=== PATIENT | female | born 1995 | race Two or more races ===

== ENCOUNTER 2019-03-28 13:58 | Emergency (ER) | payer MEDICAID ==
[~2019-03-28] VITALS: Ht 170.2 cm; Wt 82.4 kg
[2019-03-28 14:32] LABS: BASOPHILS % (AUTO) 1 % (0-1); EOSINOPHILS # (AUTO) 0.05 x10^3/uL (0-0.4); EOSINOPHILS % (AUTO) 0 % (1-7); LYMPHOCYTES # (AUTO) 2.23 x10^3/uL (1-3.4); LYMPHOCYTES % (AUTO) 20 % (22-44); MD NO; MEAN CORPUSCULAR HGB CONC 33.4 g/dL (32.4-35.8); MEAN CORPUSCULAR VOLUME 86.8 fL (80-100); MEAN PLATELET VOLUME 7.6 fL (7.4-10.4); MONOCYTES # (AUTO) 0.63 x10^3/uL (0.2-0.8); MONOCYTES % (AUTO) 6 % (2-9); NEUTROPHILS # (AUTO) 8.02 x10^3/uL (1.8-6.8); NEUTROPHILS % (AUTO) 73 % (42-75); PLATELET COUNT 318 x10^3/uL (130-400); RED BLOOD COUNT 4.99 x10^6/uL (3.82-5.3); RED CELL DISTRIBUTION WIDTH 13.6 % (9.6-15.2)
[2019-03-28 14:33] LABS: CULTURE INDICATED? YES; MICROSCOPIC INDICATED
[2019-03-28 14:40] LABS: ALBUMIN 4.2 g/dL (3.4-5.0); ANION GAP 8 mmol/L (5-15); CALCIUM 9.3 mg/dL (8.5-10.1); CHLORIDE 104 mmol/L (98-107); CREATININE 0.72 mg/dL (0.55-1.02)
--- NOTE | 2019-03-28 15:03 | NUR ---
COMPARISON SHOPPER: PT TO ROOM FROM ANI JIMENEZ
--- NOTE | 2019-03-28 15:24 | NUR ---
SHELLI REYES RN AT BEDSIDE TO START PIV AND MEDICATE.
[2019-03-28] MEDS ORDERED: CEFTRIAXONE PMX 1GM/50ML 50 ML IV ONE (15:30)
[2019-03-28] MEDS ORDERED: SODIUM CHLORIDE 0.9% 1,000ML IVBOLUS ONE (15:30)
[2019-03-28] MEDS ORDERED: METOCLOPRAMIDE 5 MG/ML, 2ML IVPush ONE (15:30)
[2019-03-28] MEDS ORDERED: CEFTRIAXONE PMX 1GM/50ML 50 ML ONE (15:32)
[2019-03-28] MEDS ORDERED: METOCLOPRAMIDE 5 MG/ML, 2ML ONE (15:32)
--- NOTE | 2019-03-28 15:42 | NUR ---
PT PRESENTING TO ER FOR N/V AND LEFT FLANK PAIN, PT 8 WKS N/V X FEW WEEKS FLANK PAIN STARTING TODAY. ALL RESULTS BACK AT THIS TIME. VSS. IV PLACED, FLUIDS STARTED, PT MEDICATED PER MAR FOR NAUSEA AND WITH ABX. FAMILY AT BEDSIDE. CALL LIGHT WITHIN REACH. AWAITING RECHECK AND DISPO
--- NOTE | 2019-03-28 16:27 | NUR ---
PLAN OF CARE DISCUSSED WITH , MOSHE CHALLENGE THEN D/C.
[2019-03-28 16:29] VITALS: BP 107/65
--- NOTE | 2019-03-28 16:29 | NUR ---
MD AT BEDSIDE TO DISCUSS PLAN OF CARE.
--- NOTE | 2019-03-28 16:30 | NUR ---
PT AMBULATED TO RESTROOM WITH STEADY GAIT.
--- NOTE | 2019-03-28 16:33 | NUR ---
PIV REMOVED, PT UP FOR D/C.
--- NOTE | 2019-03-28 16:59 | NUR ---
AWAITING RECOVERY RN CALL BACK AND DC PAPERS
--- NOTE | 2019-03-28 17:39 | NUR ---
Patient/Caregiver given discharge instructions and they have confirmed that they understand the instructions. Patient ambulatory with steady gait.
== END 2019-03-28 17:41 | disposition home or self-care (01) ==
LOC: ED 17:15
DX: O23.11 Infections of bladder in pregnancy, first trimester (principal); Z3A.01 Less than 8 weeks gestation of pregnancy
CPT/HCPCS: 36415; 76801; 80048; 81001; 82040; 84702; 85025; 87086; 96365; 96375; 99284; J0696; J2765; J7030

== ENCOUNTER 2019-05-18 13:07 | Emergency (ER) | payer MEDICAID ==
[~2019-05-18] VITALS: Ht 170.2 cm; Wt 82.3 kg
[2019-05-18] MEDS ORDERED: ONDANSETRON ODT 4 MG ONE (13:15)
[2019-05-18] MEDS ORDERED: ONDANSETRON ODT 4 MG PO ONE (13:30)
[2019-05-18 14:03] LABS: BASOPHILS # (AUTO) 0.04 x10^3/uL (0-0.1); BASOPHILS % (AUTO) 0 % (0-1); EOSINOPHILS # (AUTO) 0.03 x10^3/uL (0-0.4); EOSINOPHILS % (AUTO) 0 % (1-7); LYMPHOCYTES % (AUTO) 16 % (22-44); MD NO; MEAN CORPUSCULAR HEMOGLOBIN 28.7 pg (27.0-34.8); MEAN CORPUSCULAR HGB CONC 33.3 g/dL (32.4-35.8); MEAN CORPUSCULAR VOLUME 86.2 fL (80-100); MEAN PLATELET VOLUME 7.3 fL (7.4-10.4); MONOCYTES % (AUTO) 4 % (2-9); NEUTROPHILS # (AUTO) 9.19 x10^3/uL (1.8-6.8); NEUTROPHILS % (AUTO) 80 % (42-75); PLATELET COUNT 304 x10^3/uL (130-400); RED BLOOD COUNT 4.93 x10^6/uL (3.82-5.3); RED CELL DISTRIBUTION WIDTH 13.2 % (9.6-15.2)
--- NOTE | 2019-05-18 14:09 | NUR ---
TO ROOM FROM LOBBY. NAD.
[2019-05-18 14:15] LABS: ALBUMIN 3.7 g/dL (3.4-5.0); ANION GAP 7 mmol/L (5-15); CALCIUM 9.3 mg/dL (8.5-10.1); CHLORIDE 105 mmol/L (98-107)
[2019-05-18] MEDS ORDERED: MULT-658 PO (14:26)
--- NOTE | 2019-05-18 14:29 | NUR ---
ASSESSMENT COMPLETED. PATIENT STATES "NAUSEA WITH VOMITING FOR 3 DAYS, AND UNABLE TO KEEP ANY FOOD DOWN" PATIENT STATES SHE IS ABOUT 14WEEKS . PATIENT ALSO COMPLAINS OF "SIDE CRAMPING TO RIGHT SIDE". REGULARLLY FOLLOWS UP WITH [facility] FOR [facility] REP CARE. PATIENT IS ALERT AND ORIENTED, CALL LIGHT IN REACH AND WILL CONTINUE TO MONITOR.
[2019-05-18] MEDS ORDERED: SODIUM CHLORIDE 0.9% 1,000ML IVBOLUS ONE (14:30)
[2019-05-18 14:33] LABS: ALANINE AMINOTRANSFERASE 25 U/L (12-78); ALKALINE PHOSPHATASE 58 U/L (45-117); BILIRUBIN,TOTAL 0.5 mg/dL (0.2-1.0); CREATININE 0.66 mg/dL (0.55-1.02); TOTAL PROTEIN 7.6 g/dL (6.4-8.2)
[2019-05-18 15:06] LABS: CULTURE INDICATED? YES; MICROSCOPIC INDICATED
--- NOTE | 2019-05-18 15:39 | NUR ---
NISREEN BOBO AT BEDSIDE TO DISCUSS PLAN OF CARE/DISCHARGE.
[2019-05-18 15:59] VITALS: BP 117/57
== END 2019-05-18 16:07 | disposition home or self-care (01) ==
LOC: ED 14:56
DX: O21.9 Vomiting of pregnancy, unspecified (principal); E86.0 Dehydration; O26.892 Other specified pregnancy related conditions, second trimester; Z3A.15 15 weeks gestation of pregnancy
CPT/HCPCS: 36415; 76815; 80053; 81001; 83690; 84702; 85025; 87086; 96360; 99284; J7030; Q0162

== ENCOUNTER 2019-08-31 14:59 | Outpatient (CLI) | payer MEDICAID ==
[~2019-08-31] VITALS: Ht 170.2 cm; Wt 84.5 kg
[~2019-08-31 14:59] MED LIST: MULT-658 PO
[2019-08-31 15:18] VITALS: BP 132/64
[2019-08-31] MEDS ORDERED: D5%-LACTATED RINGERS 1,000 ML IV SCH (15:30)
[2019-08-31] MEDS ORDERED: LACTATED RINGERS 1,000 ML IV SCH ×2 (15:30)
[2019-08-31 15:50] LABS: MICROSCOPIC INDICATED
[2019-08-31] MEDS ORDERED: ONDANSETRON 2MG/ML, 2ML IVPush PRN (16:00)
[2019-08-31] MEDS ORDERED: ONDA4TAB7 PO (17:16)
== END 2019-08-31 17:34 | disposition home or self-care (01) ==
LOC: LDOP 14:59
PROVIDERS: ATTEND Obstetrics & Gynecology
DX: O62.9 Abnormality of forces of labor, unspecified (principal); O21.2 Late vomiting of pregnancy; Z3A.30 30 weeks gestation of pregnancy
CPT/HCPCS: 59025; 81001; 96360; 96361; 99211; J7120; J7121; G0463

== ENCOUNTER 2019-10-27 15:38 | Outpatient (CLI) | payer MEDICAID ==
[~2019-10-27] VITALS: Ht 172.7 cm; Wt 91.4 kg
[~2019-10-27 15:38] MED LIST changes: +ONDA4TAB7 PO
[2019-10-27 15:42] VITALS: BP 121/73
== END 2019-10-27 16:23 | disposition home or self-care (01) ==
LOC: LDOP 15:38
PROVIDERS: ATTEND Obstetrics & Gynecology
DX: O36.8130 Decreased fetal movements, third trimester, not applicable or unspecified (principal); Z3A.39 39 weeks gestation of pregnancy
CPT/HCPCS: 59025; 99211; G0463

== ENCOUNTER 2019-10-29 04:01 | Inpatient (IN) | payer MEDICAID ==
[~2019-10-29] VITALS: Ht 172.7 cm; Wt 91.0 kg
[2019-10-29] MEDS ORDERED: OXYTOCIN 30U/ 0.9% NaCL 500ML 500 ML IV ONE (04:10)
[2019-10-29] MEDS ORDERED: D5%-LACTATED RINGERS 1,000 ML IV SCH (04:10)
[2019-10-29] MEDS ORDERED: LACTATED RINGERS 1,000 ML IV SCH (04:10)
[2019-10-29] MEDS ORDERED: LIDOCAINE 1%, 20ML ONE (04:13)
[2019-10-29] MEDS ORDERED: NEWBORN KIT ONE (04:13)
[2019-10-29] MEDS ORDERED: OXYTOCIN 30U/ 0.9% NaCL 500ML 500 ML ONE (04:13)
[2019-10-29] MEDS ORDERED: MISOPROSTOL 200 MCG TABLET ONE (04:13)
[2019-10-29] MEDS ORDERED: TERBUTALINE 1 MG/ML, 1ML IVPush PRN (04:30)
[2019-10-29] MEDS ORDERED: FENTANYL PF 100 MCG/2ML IVPush PRN (04:30)
[2019-10-29] MEDS ORDERED: FENTANYL PF 100 MCG/2ML IV PRN (04:30)
[2019-10-29] MEDS ORDERED: TERBUTALINE 1 MG/ML, 1ML SQ PRN (04:30)
[2019-10-29] MEDS: PLEASE ENTER HEIGHT AND WEIGHT MC SCH ×3 (04:30→20:30)
[2019-10-29] MEDS ORDERED: ONDANSETRON 2MG/ML, 2ML IVPush PRN (04:30)
[2019-10-29] MEDS ORDERED: FENTANYL PF 100 MCG/2ML ONE (04:46)
[2019-10-29] MEDS ORDERED: OXYTOCIN 10 UNITS/ML, 1ML ONE (04:47)
[2019-10-29 06:06] LABS: BASOPHILS # (AUTO) 0.03 x10^3/uL (0-0.1); BASOPHILS % (AUTO) 0 % (0-1); EOSINOPHILS % (AUTO) 0 % (1-7); LYMPHOCYTES # (AUTO) 1.53 x10^3/uL (1-3.4); LYMPHOCYTES % (AUTO) 10 % (22-44); MD NO; MEAN CORPUSCULAR HEMOGLOBIN 27.1 pg (27.0-34.8); MEAN CORPUSCULAR HGB CONC 33.1 g/dL (32.4-35.8); MEAN PLATELET VOLUME 7.9 fL (7.4-10.4); MONOCYTES % (AUTO) 3 % (2-9); NEUTROPHILS # (AUTO) 13.35 x10^3/uL (1.8-6.8); NEUTROPHILS % (AUTO) 87 % (42-75); PLATELET COUNT 243 x10^3/uL (130-400); RED CELL DISTRIBUTION WIDTH 15.1 % (9.6-15.2)
[2019-10-29] MEDS: OXYTOCIN 30U/ 0.9% NaCL 500ML 500 ML IV SCH ×14 (06:25→23:49)
[2019-10-29] MEDS ORDERED: OXYTOCIN 30U/ 0.9% NaCL 500ML 500 ML IV SCH (06:25)
[2019-10-29] MEDS ORDERED: OXYcodone/APAP 5/325MG TABLET PO PRN (06:30)
[2019-10-29] MEDS ORDERED: GLYCERIN ADULT SUPP PR PRN (06:30)
[2019-10-29] MEDS ORDERED: ACETAMINOPHEN 325 MG TABLET PO PRN (06:30)
[2019-10-29] MEDS ORDERED: BISACODYL 10 MG SUPP PR PRN (06:30)
[2019-10-29] MEDS ORDERED: METHYLERGONOVINE 0.2 MG/ML IM PRN (06:30)
[2019-10-29] MEDS ORDERED: OXYTOCIN 10 UNITS/ML, 1ML IM PRN (06:30)
[2019-10-29] MEDS ORDERED: SIMETHICONE 80 MG CHEW TAB PO PRN (06:30)
[2019-10-29] MEDS ORDERED: CALCIUM CARBONATE 500 MG TAB.CHEW PO PRN (06:30)
[2019-10-29] MEDS ORDERED: CARBOPROST TROMETHAMINE 250 MCG/ML, 1ML IM PRN (06:30)
[2019-10-29] MEDS ORDERED: MEASLES,MUMPS&RUBELLA VACC/PF 0.5 ML SQ-VACC PRN (06:30)
[2019-10-29] MEDS ORDERED: TRANEXAMIC ACID 1,000 MG in SODIUM CHLORIDE 0.9% 100 ML IVPB ONE (06:30)
[2019-10-29] MEDS ORDERED: DIPH,PERTUSS(ACELL),TET VAC/PF NC IM-VACC PRN (06:30)
[2019-10-29] MEDS ORDERED: ONDANSETRON 2MG/ML, 2ML IV PRN (06:30)
[2019-10-29] MEDS ORDERED: DOCUSATE 100 MG CAPSULE PO PRN (06:30)
[2019-10-29] MEDS ORDERED: RHOGAM FROM BLOOD BANK 1 NOTE EA IM/IV ONE (06:30)
[2019-10-29] MEDS ORDERED: MISOPROSTOL 200 MCG TABLET PR PRN (06:30)
[2019-10-29] MEDS ORDERED: MAGNESIUM HYDROXIDE 8%, 30ML UDC PO PRN (06:30)
[2019-10-29] MEDS: IBUPROFEN 600 MG TABLET PO PRN ×3 (08:07→22:24)
[2019-10-29 08:17] VITALS: BP 107/70
[2019-10-29] MEDS: PRENATAL VIT/IRON/FA 1 EACH TABLET PO SCH (09:00)
[2019-10-29] MEDS: OXYcodone/APAP 5/325MG TABLET PO PRN ×3 (10:29→19:43)
[2019-10-29 12:48] LABS: BASOPHILS # (AUTO) 0.04 x10^3/uL (0-0.1); BASOPHILS % (AUTO) 0 % (0-1); EOSINOPHILS # (AUTO) 0.13 x10^3/uL (0-0.4); EOSINOPHILS % (AUTO) 1 % (1-7); LYMPHOCYTES % (AUTO) 16 % (22-44); MD NO; MEAN CORPUSCULAR HEMOGLOBIN 27.1 pg (27.0-34.8); MEAN CORPUSCULAR HGB CONC 33.3 g/dL (32.4-35.8); MEAN CORPUSCULAR VOLUME 81.4 fL (80-100); MEAN PLATELET VOLUME 7.2 fL (7.4-10.4); MONOCYTES # (AUTO) 0.48 x10^3/uL (0.2-0.8); MONOCYTES % (AUTO) 4 % (2-9); NEUTROPHILS # (AUTO) 10.76 x10^3/uL (1.8-6.8); NEUTROPHILS % (AUTO) 80 % (42-75); PLATELET COUNT 234 x10^3/uL (130-400); RED BLOOD COUNT 4.32 x10^6/uL (3.82-5.3); RED CELL DISTRIBUTION WIDTH 15.1 % (9.6-15.2)
[2019-10-29 13:35] VITALS: BP 116/75
[2019-10-29 19:15] VITALS: BP 121/77
[2019-10-30 00:56] VITALS: BP 126/83
[2019-10-30] MEDS: OXYTOCIN 30U/ 0.9% NaCL 500ML 500 ML IV SCH ×7 (01:15→09:51)
[2019-10-30 03:50] VITALS: BP 129/86
[2019-10-30] MEDS: PLEASE ENTER HEIGHT AND WEIGHT MC SCH (03:55)
[2019-10-30] MEDS: IBUPROFEN 600 MG TABLET PO PRN ×2 (05:06→11:36)
[2019-10-30 07:42] VITALS: BP 103/68
[2019-10-30] MEDS ORDERED: IBUP-1222 PO (09:16)
[2019-10-30] MEDS: PRENATAL VIT/IRON/FA 1 EACH TABLET PO SCH (10:05)
== END 2019-10-30 11:50 | disposition home or self-care (01) | DRG 807 ==
LOC: LDOP 04:01 → LDIP 04:11 → 2NW 07:49
PROVIDERS: ADMIT Obstetrics & Gynecology; ATTEND Obstetrics & Gynecology
PROC: 10E0XZZ Delivery of Products of Conception, External Approach (ICD-10-PCS; principal; 2019-10-29)
PROC: 0UQGXZZ Repair Vagina, External Approach (ICD-10-PCS; 2019-10-29)
DX: O71.4 Obstetric high vaginal laceration alone (principal); Z37.0 Single live birth; Z23 Encounter for immunization; Z3A.39 39 weeks gestation of pregnancy
CPT/HCPCS: 36415; 85025; 86592; 86850; 86900; G0378; J2590